=== PATIENT | female | born 1970 | race Caucasian/White ===

== ENCOUNTER 2022-04-28 11:36 | Outpatient (CLI) | payer BC, SELFPAY ==
--- NOTE | 2022-04-28 11:48 | MM_ITS ---
WS: [id number] BILATERAL SCREENING DIGITAL TOMOSYNTHESIS MAMMOGRAM WITH CAD HISTORY: SCREENING COMPARISON: 12/01/2019 Bilateral CC and MLO views with tomosynthesis and synthetic mammography submitted. Computer aided det ection analyzed. Breast composition: The breasts are heterogeneously dense, which may obscure small masses. No suspici ous masses, microcalcifications or architectural distortion. MM/[place] [id number] IMPRESSION: BI-RADS: 2-Benign FOLLOW UP: 1 Year Follow-up
== END 2022-04-28 11:37 | disposition home or self-care (01) ==
LOC: RAD 11:39
PROVIDERS: Visit Provider Registered Nurse
DX: Z12.31 Encounter for screening mammogram for malignant neoplasm of breast (principal)
CPT/HCPCS: 77063; 77067

== ENCOUNTER 2024-03-09 09:20 | Day surgery (SDC) | payer BC, SELFPAY ==
[2024-03-09] VITALS (8 sets, daily range): BP systolic 143–169; BP diastolic 89–106; PULSE 65–75; RESP 11–21; TEMP 36.1–36.8; O2SAT 97–98; BMI 24.3
--- NOTE | 2024-03-09 09:58 | W.PM.OPSUD ---
Surgery/Procedure H&P Update DATE OF PROCEDURE: March 09, 2024 DATE H&P PERFORMED: 03/08/24 H&P UPDATE INFORMATION: I have reviewed H&P completed within last 30 days, I have examined patient prior to procedure and No changes to prior documentation PLANNED PROCEDURE: Operation Date: 03/09/24 10:55 Proposed Procedures p Portacath Placement(Not Applicable) - Jhonatan Gonsalez MD
[2024-03-09] MEDS: sodium chloride 0.9% 1,000 ML 30 ML IV (09:59)
[2024-03-09 10:16] LABS: OR HCG Qualitative Urine Negative (Negative)
--- NOTE | 2024-03-09 10:46 | P.ANESASSM_ITS ---
Pre-Anesthetic Assessment Height/Weight: Height 1.64 m Weight 65.317 kg Temp Pulse Resp BP O2 Del Method O2 Flow Rate 97.3 F L 75 16 169/106 Room Air 98 03/09/24 10:04 03/09/24 10:04 03/09/24 10:04 03/09/24 10:04 03/09/24 10:04 03/09/24 10:04 Operation Date: 03/09/24 10:55 Proposed Procedures p Portacath Placement(Not Applicable) - Jhonatan Gonsalez MD Familial anesthetic complications: Slow to wake and mild PONV after her mastectomy Was Beta Mireya taken within 24 hours: N/A Was Clonidine taken within 24 hours: N/A Last intake: Intake Last Liquid Date 03/08/24 Last Liquid Time 23:30 Last Solid Date 03/08/24 Last Solid Time 23:30 Social No alcohol and No tobacco Exam alert, oriented x 3, clear to auscultation bilaterally and regular rate & rhythm Airway Mallampati: Class II Dentition: other (missing teeth[place] [facility] [place] [place] Anesthetic Plan ASA status: 2 Anesthesia: MAC Risk of > 500 ml blood loss (7ml/kg in children): No Medications/Allergies Home Medications Medication Instructions Recorded Confirmed Last Taken Type acetaminophen 325 mg capsule 325 mg PO QID PRN Pain 11/02/23 03/09/24 Unknown History (Tylenol) mullein PO 02/04/24 03/08/24 Unknown History Allergies Allergy/AdvReac Type Severity Reaction Status Date / Time No Known Allergies Allergy Verified 03/08/24 13:59 Current Medications Generic Name Dose Route Start Last Admin Trade Name Freq PRN Reason Stop Dose Admin Sodium Chloride 1,000 mls @ 30 mls/hr 03/09/24 09:30 03/09/24 09:59 Sodium Chloride 0.9% IV 03/10/24 09:29 30 mls/hr .Q24H WENDI Administration PFSH Anesthesia Medical History 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
[2024-03-09] MEDS: ceFAZolin 2,000 mg SDV 2000 MG IVP (12:00)
[2024-03-09] MEDS: lidocaine-epi 1% 20 mL INJ 4 ML INJECTION (12:30)
[2024-03-09] MEDS: BUPivacaine 0.25% INJ 10 mL 4 ML INJECTION (12:30)
[2024-03-09] MEDS: heparin, porcine 1,000 unit/mL INJ 10 mL 10000 UNIT INTRACATH (12:30)
--- NOTE | 2024-03-09 12:48 | PM.OP ---
Operative Report Date of procedure: March 09, 2024 Pre-op diagnosis: Breast cancer Post-op diagnosis: same Post-op findings: Right Port-A-Cath right IJ. Tip in the atriocaval junction confirmed with intraoperative fluoroscopy. Procedure done: Port-A-Cath placement with intraoperative fluoroscopy interpretation Implants: Port-A-Cath Specimens removed/disposition: None Pathology: none sent Surgeon: Jhonatan Gonsalez MD Regional Facilities Manager: None Anesthesia: MAC Estimated blood loss (mL): 5 Complications: None Findings: Tip of Port-A-Cath at the atriocaval junction. No kinks identified in the catheter. All of this confirmed using intraoperative fluoroscopy. Condition: stable Disposition: other (Home) Brief History: 53-year-old female who presented for port placement given history of breast cancer. For needed for chemotherapy. I discussed risks and benefits of port placement and she agrees to proceed. Procedure: Patient was brought into the operating room and a timeout was carried out. Procedure was done under MAC. Patient was placed supine with the arms tucked and in Trendelenburg. Patient was prepped and draped in the usual sterile fashion. Using ultrasound guidance the right internal jugular vein was accessed. A guidewire was then placed down to the atriocaval junction using fluoroscopy. The finder needle was removed and the guidewire was secured. I then turned my attention to creating a pocket over the right chest. Make sure to locally infiltrated using plain lidocaine and bupivacaine at the site of the pocket and throughout the tunnel site. I confirmed adequate hemostasis at the pocket. I then proceeded to place the port that was already preassembled and flushed with heparinized saline and the chest pocket. I tunneled the catheter from the chest to the neck at the site where I accessed the internal jugular vein. I measured and adjusted the length of the catheter so it would reach the atrial caval junction. At this point, I used a dilator to dilate the tract into the internal jugular vein using fluoroscopy. I removed the guidewire and proceeded to thread the central venous catheter through the introducer. In the process, I removed the sheath as a completely pushed the catheter into the internal jugular vein. I then confirmed adequate placement of the catheter by performing intraoperative interpretation of fluoroscopy. The tip of the catheter was confirmed to be placed in the atriocaval junction. There were no kinks noted throughout the trajectory of the catheter. I then proceeded to test the port and was satisfied with its functionality. I proceeded to flushed the catheter without any issues. I then hep-locked the port. Skin was closed using deep dermal 3-0 Vicryl, subcuticular 4-0 Monocryl, and Dermabond. Patient was then transferred to PACU without any complications.
[2024-03-09] MEDS: ondansetron 2 mg/ML SDV 2 mL 4 MG IVP (13:22)
--- NOTE | 2024-03-09 13:40 | ANE.PACU2 ---
Inpatient post-anesthesia follow up: Airway intact: Yes Vital signs: Temperature 98.3 F Pulse Rate 65 Respiratory Rate 16 Blood Pressure 143/101 Pulse Oximetry 98 Oxygen Delivery Me thod Room Air Oxygen Flow Rate 98 Fraction of Inspir ed Oxygen Hydration adequate: Yes Nausea and vomiting: No Pain level: 1 Mental status: Baseline
== END 2024-03-09 13:40 | disposition home or self-care (01) ==
PROVIDERS: Anesthesiology; PCP Registered Nurse; Visit Provider Student in an Organized Health Care Education/Training Program
PROC: (CPT 36561; principal; 2024-03-09 10:45)
DX: C50.919 Malignant neoplasm of unspecified site of unspecified female breast (principal)
CPT/HCPCS: 36561; 76000; 81025; C1788; J0690; J1644; J2250; J2405; J2704; J3010; J3490; J7030

== ENCOUNTER 2024-03-09 13:45 | Oncology outpatient (recurring) (ONCR) | payer BC, SELFPAY ==
--- NOTE | 2024-03-09 13:45 | USCV_ITS ---
Hua Reagan Age: 53 Gender: F : 1970 Exam Date: 03/09/2024 14:07 Ordering Phys: Dennise Burrows APRN Technologist: MILO [place] [facility] [place]: HI RISK MEDS BP: 142 / 86 HR: 67 Rhythm: Sinus Technical Quality: Suboptimal MEASUREMENTS (Male / Female) Normal Values 2D ECHO LV Diastolic Diameter PLAX 3.5 cm 4.2 - 5.9 / 3.9 - 5.3 cm IVS Diastolic Thickness 1.5 cm 0.6 - 1.0 / 0.6 - 0.9 cm IVS Systolic Thickness 2.0 cm LVPW Diastolic Thickness 1.2 cm 0.6 - 1.0 / 0.6 - 0.9 cm LVPW Systolic Thickness 2.3 cm LV Ejection Fraction 2D Teich 56.8 % LV Ejection Fraction MOD 4C 62.6 % LV Ejection Fraction MOD 2C 52.6 % LV Ejection Fraction 2C AL 54.1 % RA Systolic Volume 4C AL 17.9 ml RA Systolic Volume 4C MOD 16.9 ml LA Sys Volume AL 35.4 cm cubed LA Sys Volume Index AL 20.6 cm cubed/m squared IVC Diameter 1.9 cm DOPPLER AV Peak Velocity 99.0 cm/s LVOT Peak Velocity 79.0 cm/s MV Peak Velocity 80.0 cm/s MV Area PHT 2.6 cm squared TR Peak Velocity 144.0 cm/s TR Peak Gradient 8.3 mmHg TR Mean Velocity 122.0 cm/s TR Mean Gradient 6.3 mmHg TR Velocity Time Integral 55.0 cm TV Peak E Velocity 51.0 cm/s Right Atrial Pressure 3.0 mmHg Pulmonary Artery Systolic Pressu 11.3 mmHg FINDINGS Left Ventricle Normal left ventricular size, systolic function and wall thickness, with no regional wall motion abnormalities. Left ventricular ejection fraction is estimated at 55%. Grade I/IV diastolic dysfunction (abnormal relaxation filling pattern), normal to mildly elevated filling pressures. Right Ventricle The right ventricle is normal in size and function. Right Atrium The right atrium is normal in size. Left Atrium Moderately increased left atrial size. Mitral Valve Moderately thickened mitral valve. Mildly thickened mitral valve. Moderate mitral annular calcification. No mitral valve stenosis. Aortic Valve Structurally normal aortic valve without significant sclerosis or stenosis. There is no aortic regurgitation. Tricuspid Valve Structurally normal tricuspid valve without significant stenosis or regurgitation. Pulmonary artery systolic pressure is normal. Pulmonic Valve Structurally normal pulmonic valve without significant stenosis. There is no pulmonic regurgitation. Pericardium Normal pericardium without effusion. Aorta Normal ascending aorta dimension. IVC The inferior vena cava appears normal. CONCLUSIONS Normal left ventricular size, systolic function and wall thickness, with no regional wall motion abnormalities. Left ventricular ejection fraction is estimated at 55%. Grade I/IV diastolic dysfunction (abnormal relaxation filling pattern), normal to mildly elevated filling pressures No significant valve abnormalities. Limited echo. Josseline Corrigan MD (Electronically Signed) Final Date: 09 March 2024 21:16 S
== END 2024-03-31 23:59 | disposition home or self-care (01) ==
LOC: ONCMED 13:47 → RAD 13:48 → ONCMED 03-10 11:14
PROVIDERS: PCP Registered Nurse; Visit Provider Nurse Practitioner Family
DX: C50.811 Malignant neoplasm of overlapping sites of right female breast (principal); I50.30 Unspecified diastolic (congestive) heart failure; Z53.9 Procedure and treatment not carried out, unspecified reason
CPT/HCPCS: 93306

== ENCOUNTER 2024-04-27 08:07 | Oncology outpatient (recurring) (ONCR) | payer BC, SELFPAY ==
[2024-04-25 08:31] LABS: Basophils % 0.1 %; Hematocrit 38.6 % (36-47); Lymphocytes # 0.9 10^3/uL (0.8-4.8); Lymphocytes % 8.5 %; Mean Corpuscular HGB Conc 33.2 g/dL (30-55); Mean Corpuscular Hemoglobin 29.3 pg (27-33); Mean Corpuscular Volume 88.3 fl (85-98); Mean Platelet Volume 10.1 fL (7.4-10.4); Monocytes # 0.5 10^3/uL (0.2-0.9); Monocytes % 4.7 %; Neutrophils # 9.12 10^3/uL (1.8-7.7); Neutrophils % 86.3 %; Nucleated Red Blood Cells % 0 %; Platelet Count 257 10^3/cmm (157-399); Red Blood Count 4.37 10^6/uL (3.85-5.65); Red Cell Distribution Width 12.7 % (12.1-15.1); White Blood Count 10.57 10^3/uL (3.29-11.43)
[2024-04-25 08:52] LABS: Alanine Aminotransferase 11 U/L (0-33); Albumin Level 4.2 g/dL (3.5-5.2); Alkaline Phosphatase 70 U/L (35-105); Anion Gap 12.6 (5-19); Aspartate Amino Transferase 16 U/L (0-32); Blood Urea Nitrogen 13 mg/dL (6-20); Calcium 9.5 mg/dL (8.5-10.5); Carbon Dioxide 25 mmol/L (22-29); Chloride 106 mmol/L (98-107); Creatinine Clr Calc Pharmacy 150.0794; Globulin 2.6 g/dL (1.3-4.6); Glomerular Filtration Rate 166.3 mL/min (90-130); Glucose 129 mg/dL (65-115); Osmolality Calculated 292 mOsm/kg (285-295); Potassium 3.6 mmol/L (3.5-5.1); Sodium 140 mmol/L (136-145); Total Bilirubin 0.3 mg/dL (0.15-1.2); Total Protein 6.8 g/dL (6.6-8.7)
[2024-04-27 08:29] VITALS: BP 136/83; PULSE 59; RESP 16; TEMP 36.9; O2SAT 99
[2024-04-27] MEDS: OLANZapine 5 mg TABLET PO (09:15)
[2024-04-27] MEDS: acetaminophen 325 mg Tablet 650 MG PO (09:15)
[2024-04-27] MEDS: sodium chloride 0.9% 250 ML 50 ML IV (09:20)
[2024-04-27] MEDS: aprepitant 130 mg/18 ml SDV IVP (09:20)
[2024-04-27] MEDS: famotidine 20 mg/2 mL INJ IVP (09:21)
[2024-04-27] MEDS: palonosetron 0.25 mg/5 mL SDV IVP (09:24)
[2024-04-27] MEDS: dexamethasone 4 mg/mL INJ 12 MG IVP (09:28)
[2024-04-27] MEDS: diphenhydrAMINE 50 mg/mL SDV 1mL 25 MG IVP (09:40)
[2024-04-27] MEDS: pertuzumab 840 MG in sodium chloride 0.9% 250 ML 278 MG IV (10:26)
[2024-04-27] MEDS: SODIUM CHLORIDE 0.9% IV (11:35)
[2024-04-27] MEDS: TRASTUZUMAB ANNS IV (11:35)
[2024-04-27] MEDS: [UNRECOGNIZED DRUG - REMARK] 262.9 MG IV (13:18)
[2024-04-27 15:53] VITALS: BP 129/79; PULSE 71; RESP 17; TEMP 36.4; O2SAT 97
[2024-04-27] MEDS: PEGFILGRASTIM CBQV 6 MG/0.6 ML SUBCUT (16:00)
[2024-04-27 16:21] VITALS: BP 129/79; PULSE 71; RESP 16; TEMP 36.6; O2SAT 99
== END 2024-04-30 23:59 | disposition home or self-care (01) ==
PROVIDERS: Nurse Practitioner; PCP Registered Nurse; Visit Provider Nurse Practitioner Family
DX: C50.811 Malignant neoplasm of overlapping sites of right female breast; Z51.11 Encounter for antineoplastic chemotherapy; Z51.12 Encounter for antineoplastic immunotherapy; Z17.1 Estrogen receptor negative status [ER-]; Z79.899 Other long term (current) drug therapy; Z79.52 Long term (current) use of systemic steroids; Z53.9 Procedure and treatment not carried out, unspecified reason
CPT/HCPCS: 80053; 85025; 96375; 96377; 96413; 96415; 96417; J0185; J1100; J1200; J2469; J3490; J7040; J7050; J9045; J9171; J9306; Q5111; Q5117

== ENCOUNTER 2024-05-26 12:15 | Oncology outpatient (recurring) (ONCR) | payer BC, SELFPAY ==
[2024-05-04 10:10] LABS: Hematocrit 43.9 % (36-47); Mean Corpuscular HGB Conc 33.5 g/dL (30-55); Mean Corpuscular Hemoglobin 30.2 pg (27-33); Mean Corpuscular Volume 90.1 fl (85-98); Mean Platelet Volume 10.9 fL (7.4-10.4); Platelet Count 201 10^3/cmm (157-399); Red Blood Count 4.87 10^6/uL (3.85-5.65); Red Cell Distribution Width 13.2 % (12.1-15.1)
[2024-05-04 10:43] LABS: Alanine Aminotransferase 22 U/L (0-33); Albumin Level 4.1 g/dL (3.5-5.2); Alkaline Phosphatase 118 U/L (35-105); Anion Gap 15.3 (5-19); Aspartate Amino Transferase 20 U/L (0-32); Blood Urea Nitrogen 14 mg/dL (6-20); Calcium 9.5 mg/dL (8.5-10.5); Carbon Dioxide 26 mmol/L (22-29); Chloride 99 mmol/L (98-107); Creatinine Clr Calc Pharmacy 84.7072; Globulin 2.8 g/dL (1.3-4.6); Glomerular Filtration Rate 87.2 mL/min (90-130); Glucose 111 mg/dL (65-115); Osmolality Calculated 283 mOsm/kg (285-295); Potassium 4.3 mmol/L (3.5-5.1); Sodium 136 mmol/L (136-145); Total Bilirubin 0.2 mg/dL (0.15-1.2); Total Protein 6.9 g/dL (6.6-8.7)
[2024-05-04 11:13] LABS: Slide Review Slide Review Perform
[2024-05-04 11:21] LABS: Absolute Neutrophil 14.4 10^3/cmm (1.4-6.5); Absolute Segmented Neutrophil 9.8 10/cmm (1.6-7.1); Band Neutrophils Absolute 4.6 10^3/cmm (0.0-1.2); Eosinophils 0 %; Lymphocytes 15 %; Lymphocytes Absolute 3.5 10^3/cmm (1.2-3.4); Monocytes Absolute 1.2 10^3/cmm (0.1-0.6); Platelet Estimate Normal (Normal); Segmented Neutrophils 47 %; Total Cells Counted 100 (0-100)
[2024-05-11 10:54] LABS: Basophils # 0.1 10^3/uL (0.0-0.1); Basophils % 0.7 %; Eosinophils % 0.1 %; Hematocrit 35.9 % (36-47); Lymphocytes # 1.3 10^3/uL (0.8-4.8); Lymphocytes % 14.2 %; Mean Corpuscular HGB Conc 32.6 g/dL (30-55); Mean Corpuscular Hemoglobin 29.2 pg (27-33); Mean Corpuscular Volume 89.5 fl (85-98); Mean Platelet Volume 9.9 fL (7.4-10.4); Monocytes # 0.5 10^3/uL (0.2-0.9); Monocytes % 5.4 %; Neutrophils % 78.2 %; Nucleated Red Blood Cells % 0 %; Platelet Count 142 10^3/cmm (157-399); Red Blood Count 4.01 10^6/uL (3.85-5.65); Red Cell Distribution Width 13.4 % (12.1-15.1); White Blood Count 8.82 10^3/uL (3.29-11.43)
[2024-05-11 11:09] LABS: Alanine Aminotransferase 19 U/L (0-33); Albumin Level 3.9 g/dL (3.5-5.2); Alkaline Phosphatase 120 U/L (35-105); Anion Gap 14.7 (5-19); Aspartate Amino Transferase 20 U/L (0-32); Blood Urea Nitrogen 11 mg/dL (6-20); Carbon Dioxide 25 mmol/L (22-29); Chloride 103 mmol/L (98-107); Creatinine Clr Calc Pharmacy 148.2377; Globulin 2.5 g/dL (1.3-4.6); Glomerular Filtration Rate 166.3 mL/min (90-130); Glucose 83 mg/dL (65-115); Osmolality Calculated 287 mOsm/kg (285-295); Potassium 3.7 mmol/L (3.5-5.1); Sodium 139 mmol/L (136-145); Total Bilirubin 0.4 mg/dL (0.15-1.2); Total Protein 6.4 g/dL (6.6-8.7)
[2024-05-18 08:18] LABS: Basophils % 0.4 %; Eosinophils % 0.1 %; Hematocrit 32.2 % (36-47); Lymphocytes # 1.7 10^3/uL (0.8-4.8); Lymphocytes % 20.3 %; Mean Corpuscular HGB Conc 33.2 g/dL (30-55); Mean Corpuscular Hemoglobin 30.5 pg (27-33); Mean Corpuscular Volume 91.7 fl (85-98); Mean Platelet Volume 9.5 fL (7.4-10.4); Monocytes # 0.8 10^3/uL (0.2-0.9); Monocytes % 8.9 %; Neutrophils % 69.6 %; Nucleated Red Blood Cells % 0 %; Platelet Count 370 10^3/cmm (157-399); Red Blood Count 3.51 10^6/uL (3.85-5.65); Red Cell Distribution Width 13.9 % (12.1-15.1); White Blood Count 8.47 10^3/uL (3.29-11.43)
[2024-05-18 08:37] LABS: Alanine Aminotransferase 14 U/L (0-33); Albumin Level 3.9 g/dL (3.5-5.2); Alkaline Phosphatase 92 U/L (35-105); Anion Gap 11.3 (5-19); Aspartate Amino Transferase 17 U/L (0-32); Blood Urea Nitrogen 15 mg/dL (6-20); Calcium 8.8 mg/dL (8.5-10.5); Carbon Dioxide 26 mmol/L (22-29); Chloride 106 mmol/L (98-107); Creatinine Clr Calc Pharmacy 120.8002; Globulin 2.4 g/dL (1.3-4.6); Glomerular Filtration Rate 128.6 mL/min (90-130); Glucose 92 mg/dL (65-115); Osmolality Calculated 290 mOsm/kg (285-295); Potassium 3.3 mmol/L (3.5-5.1); Sodium 140 mmol/L (136-145); Total Bilirubin 0.3 mg/dL (0.15-1.2); Total Protein 6.3 g/dL (6.6-8.7)
[2024-05-18] MEDS: sodium chloride 0.9% 250 ML 50 ML IV (10:07)
[2024-05-18] MEDS: potassium chloride premix 100 ML 25 MEQ IV (10:08)
[2024-05-18] MEDS: OLANZapine 5 mg TABLET PO (10:13)
[2024-05-18] MEDS: aprepitant 130 mg/18 ml SDV IVP (10:13)
[2024-05-18] MEDS: dexamethasone 4 mg/mL INJ 12 MG IVP (10:20)
[2024-05-18] MEDS: famotidine 20 mg/2 mL INJ IVP (10:22)
[2024-05-18] MEDS: palonosetron 0.25 mg/5 mL SDV IVP (10:26)
[2024-05-18] MEDS: pertuzumab 420 MG in sodium chloride 0.9% 250 ML 264 MG IV (11:41)
[2024-05-18] MEDS: SODIUM CHLORIDE 0.9% IV (12:58)
[2024-05-18] MEDS: TRASTUZUMAB ANNS IV (12:58)
[2024-05-18] MEDS: [UNRECOGNIZED DRUG - REMARK] 263 MG IV (14:13)
[2024-05-18] MEDS: PEGFILGRASTIM CBQV 6 MG/0.6 ML SUBCUT (16:29)
[2024-05-18 16:42] VITALS: BP 146/83; PULSE 84; RESP 16; TEMP 36; O2SAT 93
[2024-05-26 14:27] LABS: Hematocrit 36.1 % (36-47); Mean Corpuscular HGB Conc 32.4 g/dL (30-55); Mean Corpuscular Hemoglobin 29.5 pg (27-33); Mean Corpuscular Volume 90.9 fl (85-98); Mean Platelet Volume 10.1 fL (7.4-10.4); Platelet Count 270 10^3/cmm (157-399); Red Blood Count 3.97 10^6/uL (3.85-5.65); Red Cell Distribution Width 13.7 % (12.1-15.1); White Blood Count 17.04 10^3/uL (3.29-11.43)
[2024-05-26 14:44] LABS: Alanine Aminotransferase 19 U/L (0-33); Albumin Level 3.7 g/dL (3.5-5.2); Alkaline Phosphatase 140 U/L (35-105); Anion Gap 13.9 (5-19); Aspartate Amino Transferase 23 U/L (0-32); Blood Urea Nitrogen 11 mg/dL (6-20); Calcium 8.1 mg/dL (8.5-10.5); Carbon Dioxide 24 mmol/L (22-29); Chloride 103 mmol/L (98-107); Creatinine Clr Calc Pharmacy 120.8002; Globulin 2.4 g/dL (1.3-4.6); Glomerular Filtration Rate 128.6 mL/min (90-130); Glucose 103 mg/dL (65-115); Magnesium 1.6 mg/dL (1.7-2.3); Osmolality Calculated 284 mOsm/kg (285-295); Potassium 3.9 mmol/L (3.5-5.1); Sodium 137 mmol/L (136-145); Total Bilirubin 0.2 mg/dL (0.15-1.2); Total Protein 6.1 g/dL (6.6-8.7)
[2024-05-26 15:01] LABS: Slide Review Slide Review Perform
[2024-05-26 15:04] LABS: Band Neutrophils Absolute 4.9 10^3/cmm (0.0-1.2); Lymphocytes 8 %; Monocytes Absolute 1.4 10^3/cmm (0.1-0.6); Segmented Neutrophils 53 %; Total Cells Counted 100 (0-100)
[2024-05-26 15:05] LABS: Eosinophils 0 %; Lymphocytes Absolute 1.4 10^3/cmm (1.2-3.4); Platelet Estimate Normal (Normal)
== END 2024-05-31 23:59 | disposition home or self-care (01) ==
PROVIDERS: Internal Medicine; Nurse Practitioner; PCP Registered Nurse; Visit Provider Nurse Practitioner Family
DX: Z53.9 Procedure and treatment not carried out, unspecified reason (principal); C50.811 Malignant neoplasm of overlapping sites of right female breast; D64.9 Anemia, unspecified
CPT/HCPCS: 36591; 80053; 83735; 85007; 85025; 96367; 96375; 96377; 96413; 96417; J0185; J1100; J2469; J3480; J3490; J7040; J7050; J9045; J9171; J9306; Q5111; Q5117